=== PATIENT | female | born 1990 | race Two or more races ===

== ENCOUNTER 2021-12-23 15:49 | Inpatient (IN) | payer OTHER ==
[~2021-12-23] VITALS: Ht 172.7 cm; Wt 102.1 kg
[2021-12-23] MEDS ORDERED: PRENATAL TABLE1 EAC3 PO (16:12)
== END 2021-12-26 13:22 | disposition home or self-care (01) | DRG 798 ==
LOC: OB/GYN 15:49 → LDR 15:49 → OB/GYN 20:08
PROVIDERS: ADMIT Obstetrics & Gynecology; ATTEND Obstetrics & Gynecology
PROC: 10E0XZZ Delivery of Products of Conception, External Approach (ICD-10-PCS; principal; 2021-12-23)
PROC: 4A1HXCZ Monitoring of Products of Conception, Cardiac Rate, External Approach (ICD-10-PCS; 2021-12-23)
PROC: 0UB70ZZ Excision of Bilateral Fallopian Tubes, Open Approach (ICD-10-PCS; 2021-12-24)
DX: O80 Encounter for full-term uncomplicated delivery (principal); Z37.0 Single live birth; Z3A.37 37 weeks gestation of pregnancy; Z20.822 Contact with and (suspected) exposure to COVID-19; Z30.2 Encounter for sterilization